=== PATIENT | male | born 1965 | race Caucasian/White ===

== ENCOUNTER 2019-06-08 11:30 | Emergency (ER) | payer MEDICAID ==
[~2019-06-08] VITALS: Ht 175.3 cm; Wt 79.4 kg
[2019-06-08 11:30] VITALS: BP_SYST 139
--- NOTE | 2019-06-08 11:30 | NUR ---
BROUGHT IN BY [facility] AND [facility]ACED IN BED #1, TRIAGED. REPORT GIVEN TO SHERRIE
--- NOTE | 2019-06-08 11:43 | NUR ---
Pt AAOx3 BIB BLS from a job site c/o dizziness and inability to sleep. Pt reports he takes meth 5 times this week. Skin pink dry and warm, breathing even and unlabored. Pt speaking in full sentences, hyperverbal. No other injuries/complaints per pt/noted. Will continue to monitor.
--- NOTE | 2019-06-08 12:07 | NUR ---
ER Dr. Villareal at bedside examining patient.
[2019-06-08] MEDS: DIAZEPAM 5 MG TABLET (VALIUM) PO ONE (12:19)
[2019-06-08 13:52] VITALS: BP_SYST 133
--- NOTE | 2019-06-08 13:52 | NUR ---
Patient given written and verbal discharge instructions and verbalizes understanding. ER MD Villareal discussed with patient the results and treatment provided. Patient in stable condition. ID arm band removed. No Rx given. Patient educated on pain management and to follow up with PMD. Pain Scale 0. Opportunity for questions provided and answered. Medication side effect fact sheet provided.
== END 2019-06-08 13:52 | disposition home or self-care (01) ==
LOC: SED 11:30
DX: F41.9 Anxiety disorder, unspecified (principal)
CPT/HCPCS: 93005; 99283

== ENCOUNTER 2019-06-08 18:16 | Emergency (ER) | payer MEDICAID ==
[~2019-06-08] VITALS: Ht 175.3 cm; Wt 79.4 kg
[2019-06-08 18:17] VITALS: BP_SYST 112
== END 2019-06-08 18:21 | disposition left against medical advice (07) ==
LOC: SED 18:16
DX: M79.10 Myalgia, unspecified site (principal); Z53.21 Procedure and treatment not carried out due to patient leaving prior to being seen by health care provider

== ENCOUNTER 2021-02-16 16:13 | Emergency (ER) | payer MEDICAID ==
[~2021-02-16] VITALS: Ht 177.8 cm; Wt 81.6 kg
[2021-02-16 16:15] VITALS: BP_SYST 132
--- NOTE | 2021-02-16 16:58 | NUR ---
RECEIVED AND IN ROOM, CALM, ALERT, RESP UNLABORED, COMMUNICATES CLEARLY IN FULL COMPLETE SENTENCES
--- NOTE | 2021-02-16 17:00 | NUR ---
Pt AAO and ambulatory reporting changes in urinary stream. Pt reports that he used to take flomax and stopped taking flomax last month. Pt currently denies any pain with stable v/s.
--- NOTE | 2021-02-16 17:44 | NUR ---
Dr. Rascon to bedside to assess.
[2021-02-16 17:53] LABS: BILIRUBIN,URINE NEGATIVE (NEGATIVE); BLOOD, URINE NEGATIVE (NEGATIVE); CLARITY/URINE CLEAR (CLEAR); COLOR,URINE YELLOW (YELLOW); GLUCOSE,URINE NEGATIVE (NEGATIVE); KETONES,URINE NEGATIVE (NEGATIVE); LEUKOCYTE ESTERASE ,URINE NEGATIVE (NEGATIVE); NITRITE, URINE NEGATIVE (NEGATIVE); PH,URINE 5.5 (5.0-8.0); PROTEIN URINE NEGATIVE (NEGATIVE); UROBILINOGEN,URINE 0.2 (0.2-1.0)
[2021-02-16 18:14] VITALS: BP_SYST 125
--- NOTE | 2021-02-16 18:14 | NUR ---
Patient given written and verbal discharge instructions and verbalizes understanding. Dr. Abiodun ALVARADO MD discussed with patient the results and treatment provided. Patient in stable condition. ID arm band removed. Patient educated on pain management and to follow up with PMD. Pain Scale 0/10. Opportunity for questions provided and answered.
== END 2021-02-16 18:14 | disposition home or self-care (01) ==
LOC: SED 16:13
DX: R39.11 Hesitancy of micturition (principal)
CPT/HCPCS: 81003; 99283